=== PATIENT | female | born 1985 | race Caucasian/White ===

== ENCOUNTER → 2021-01-13 09:23 | Outpatient (CLI) | payer BC, SELFPAY ==
[2021-01-13 11:26] LABS: Hematocrit 33.2 % (36-46); Hemoglobin 11.1 g/dL (12.0-16.0)
[2021-01-13 11:49] LABS: GTT (PREG) 1 Hour PP 50gm Dose 150 mg/dL (76-139)
== END ==
PROVIDERS: Referring Provider Obstetrics & Gynecology; Visit Provider Obstetrics & Gynecology
DX: Z34.83 Encounter for supervision of other normal pregnancy, third trimester (principal)
CPT/HCPCS: 36415; 82950; 85014; 85018

== ENCOUNTER → 2021-01-15 16:58 | Outpatient (CLI) | payer BC, SELFPAY ==
[2021-01-18 15:25] LABS: Candida species Negative (Negative); Gardnerella vaginalis Negative (Negative); Trichomoas vaginalis Negative (Negative)
== END ==
PROVIDERS: Visit Provider Obstetrics & Gynecology
DX: O23.599 Infection of other part of genital tract in pregnancy, unspecified trimester (principal); B96.89 Other specified bacterial agents as the cause of diseases classified elsewhere; Z3A.31 31 weeks gestation of pregnancy
CPT/HCPCS: 87480; 87510; 87660

== ENCOUNTER → 2021-01-19 09:05 | Outpatient (CLI) | payer BC, SELFPAY ==
[2021-01-19 12:14] LABS: Glucose 1 Hour Gest 151 mg/dL (76-180)
[2021-01-19 12:36] LABS: Glucose Tol Interp,Gestational INTERPRETATION
[2021-01-19 13:29] LABS: Glucose 3 Hour Gest 109 mg/dL (76-140)
[2021-01-19 14:16] LABS: Glucose 2 Hour Gest 152 mg/dL (76-155)
[2021-01-19 16:40] LABS: Glucose Fasting Gestational 83 mg/dL (76-95)
== END ==
PROVIDERS: Referring Provider Obstetrics & Gynecology; Visit Provider Obstetrics & Gynecology
DX: O99.810 Abnormal glucose complicating pregnancy (principal)
CPT/HCPCS: 36415; 82951; 82952

== ENCOUNTER → 2021-02-16 12:34 | Outpatient (CLI) | payer BC, SELFPAY ==
[2021-02-17 07:58] LABS: Strep Grp B PCR POS for Grp B Strep
== END ==
PROVIDERS: Visit Provider Obstetrics & Gynecology
DX: Z34.83 Encounter for supervision of other normal pregnancy, third trimester (principal); Z3A.36 36 weeks gestation of pregnancy
CPT/HCPCS: 87653

== ENCOUNTER 2021-03-17 14:14 | Outpatient (CLI) | payer BC, SELFPAY ==
--- NOTE | 2021-03-17 14:54 | PM.OBTRLD ---
Visit Information Visit Information Date of evaluation: 03/17/21 Primary OB Provider: Eric Blackwell On-call OB Provider: Mirella Gudino Reason for Evaluation: Yes non-stress test non-stress test reason: other ( post dates) Vital Signs Vital Signs: blood pressure 125/72, pulse 76, temperature 97.4? COUNTS INCLUDE 234 BEDS AT THE [facility] Medical History (Updated 03/17/21 @ 15:00 by Mirella Gudino MD) Abnormal Pap smear of cervix (~2009) Acute vaginitis (~10/2020) ADHD Fracture of right clavicle (~1999) Migraines (~1999) Rosacea (~2010) (spontaneous vaginal delivery) (~02/15/16) UTI (urinary tract infection) Surgical History (Updated 01/08/21 @ 12:36 by Maddie Lopez, SHERICE) History of cranioplasty (~1985) S/P foot surgery (~2014) S/P LEEP (loop electrosurgical excision procedure) (~2010) [place] teeth extracted Family History (Updated 01/08/21 @ 12:44 by Maddie Lopez, SHERICE) Father Cancer Esophageal cancer Mother Cancer Melanoma Grandfather Cancer Leukemia Grandmother No problems noted. Grandfather Heart failure Grandmother No problems noted. 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 ) occupational status: unemployed (Not currently working. Needs to get her [place] On[employer]ep Exam & license first. ) current occupational exposures/hazards: No agustin/church: [employer] special agustin needs: No seatbelt use: always do you feel safe at home: Yes Smoking Status: Former smoker (Age 20-25, 3-5 cigs.) Tobacco: How many years used: 5 quit status: has quit before (Quit in 2016) second hand exposure: No alcohol intake: former (pre- : 2-4 times/month, no regular intake. None since .) substance use type: marijuana (Used via vapor pen prior to , has not used since : discussed with buckshot swage operator 07/31/2020 : nausea management discussed. Aware not to use THC with BF. ) during the past year weight has: remained stable well-balanced diet: daily or most days daily servings fruits/ve-4 caffeine: Yes (1 cup 16 oz a day. Advised to limit to 8 oz or do 1/2 decaf.) Type(s) of exercise: walking and swimming (Used to swim in [place], stopped with move.) frequency: daily duration: 15-30 minutes/day Evaluation Evaluation Baseline heart rate: 130 monitor accelerations: Present Monitor Decelerations: Absent Contraction Frequency (minutes): 9 Uterine Contraction Intensity: Mild Category of Tracing: Reactive Status: Category l Diagnosis, Plan/Disposition Final Diagnosis (1) 40 weeks gestation of : Status: Acute Plan/Disposition Plan: Reactive nonstress test. Keep routine OB appointment OB Disposition: home
== END 2021-03-17 15:00 | disposition home or self-care (01) ==
LOC: LABOR 14:40 → OB 03-23 12:03
PROVIDERS: Referring Provider Obstetrics & Gynecology; Visit Provider Obstetrics & Gynecology
DX: O48.0 Post-term pregnancy (principal); Z3A.41 41 weeks gestation of pregnancy
CPT/HCPCS: 59025; G0378; G0379

== ENCOUNTER 2021-03-21 21:28 | Inpatient (IN) | payer BC, SELFPAY ==
[2021-03-21] MEDS: PENICILLIN G POTASSIUM 5,000,000 UNIT in DEXTROSE 5% IN WATER 250 ML IV (23:59)
[2021-03-21] MEDS: LACTATED RINGERS 1,000 ML 100 ML IV (23:59)
[2021-03-22 00:19] VITALS: BP 125/82
[2021-03-22 00:23] LABS: Add Manual Diff / Slide Review NO; Basophils Absolute Auto 0 /uL (0-100); Basophils Percent Auto 0.2 % (0-2); Eosinophils Absolute Auto 100 /uL (0-450); Eosinophils Percent Auto 0.7 % (2-4); Hematocrit 37.2 % (36-46); Hemoglobin 12.3 g/dL (12.0-16.0); Lymphocytes Absolute Auto 1000 /uL (1100-4500); Lymphocytes Percent Auto 12.3 % (25-40); Mean Corpuscular HGB Conc 33.2 % (30-36); Mean Corpuscular Hemoglobin 30.4 PG (26-34); Mean Corpuscular Volume 91.5 fL (80-100); Monocytes Absolute Auto 600 /uL (0-900); Monocytes Percent Auto 7.2 % (3-14); Neutrophils Absolute Auto 6500 /uL (1500-7000); Neutrophils Percent Auto 79.6 % (50-75); Platelet Count 140 X10^3/uL (150-400); Red Blood Cell Count 4.06 X10^6/uL (4.0-5.2); Red Cell Distribution Width 14.5 % (11.6-14.8); White Blood Cell Count 8.2 X10^3/uL (4.5-11.0)
[2021-03-22 01:06] LABS: COVID19 - ADMIT (NP swab/PCR) Negative (Negative)
[2021-03-22] MEDS: FENT 2MCG/ML BUPIV 0.125% EPI 200 MCG/100 ML PLAST..BAG 8 MCG EPIDURAL (01:42)
[2021-03-22] MEDS: LACTATED RINGERS 1,000 ML 100 ML IV (02:11)
[2021-03-22] MEDS: PENICILLIN G POTASSIUM 3,000,000 UNIT/50 ML FROZ.PIGGY 100 UNIT IV (03:56)
[2021-03-22] MEDS: ACETAMINOPHEN 325 MG TABLET 650 MG PO ×3 (04:43→17:05)
--- NOTE | 2021-03-22 07:09 | PM.OBHP.1 ---
OB HPI Date/Time Date of admission: 03/21/21 Date Patient Seen: 03/22/21 Time Patient Seen: 06:30 History of Present Condition Chief complaint: : 2 Para: 1 Estimated Date of Delivery: 03/13/21 Estimated Gestational Age (weeks): 41+2 Narrative: Megan Nichole is a 35 year old admitted now at 41+1 weeks EGA in labor. + GBS. History of Present care: good care Dating criteria: LMP confirmed by 1st trimester US Ultrasounds: normal mid trimester US Obstetrical complications: other (GBS +) Preadmission Labs Blood type: O (+) positive -: Antibody screen: negative, GBS status: positive, HBsAG: negative, HIV: negative and RPR/VDLR: negative -: Chlamydia screen: not detected and Gonorrhea screen: not detected -: Rubella: immune and Varicella: immune HCT: 37.2 HCAB: negative PAP: Normal Cell-free DNA: Normal 1 hr GTT: 150 Prior (ies) History: x 1 Evaluation Evaluation Baseline heart rate: 150 Variability: Moderate (11-25) monitor accelerations: Present Monitor Decelerations: Absent Contraction Frequency (minutes): 4 Uterine Contraction Intensity: Moderate Category of Tracing: Reactive Status: Category l Cervical dilation (cm): 7 Cervical effacement (%): 100 station: -2 [facility] Medical History Abnormal Pap smear of cervix (~2009) Acute vaginitis (~10/2020) ADHD Fracture of right clavicle (~1999) Migraines (~1999) Rosacea (~2010) (spontaneous vaginal delivery) (~02/15/16) UTI (urinary tract infection) Surgical History History of cranioplasty (~1985) S/P foot surgery (~2014) S/P LEEP (loop electrosurgical excision procedure) (~2010) [place] teeth extracted Family History Father Cancer Esophageal cancer Mother Cancer Melanoma Grandfather Cancer Leukemia Grandmother No problems noted. Grandfather Heart failure Grandmother No problems noted. 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 ) occupational status: unemployed (Not currently working. Needs to get her [place] Bar Exam & license first. ) current occupational exposures/hazards: No agustin/presybeterian: [employer] special agustin needs: No seatbelt use: always do you feel safe at home: Yes Smoking Status: Never smoker Tobacco: How many years used: 5 quit status: has quit before (Quit in 2016) second hand exposure: No alcohol intake: former (pre- : 2-4 times/month, no regular intake. None since .) substance use type: marijuana (Used via vapor pen prior to , has not used since : discussed with parts casting machine operator 07/31/2020 : nausea management discussed. Aware not to use THC with BF. ) during the past year weight has: remained stable well-balanced diet: daily or most days daily servings fruits/ve-4 caffeine: Yes (1 cup 16 oz a day. Advised to limit to 8 oz or do 1/2 decaf.) Type(s) of exercise: walking and swimming (Used to swim in [place], stopped with move.) frequency: daily duration: 15-30 minutes/day Meds Home Medications and Allergies Home Medications Medication Instructions Recorded Confirmed Type azelaic acid 15 % topical foam 1 applic TOPICAL QAM AND QPM 01/08/21 03/22/21 History (Finacea) diphenhydramine HCl 50 mg capsule 50 mg PO BEDTIME 01/08/21 03/21/21 History ivermectin 1 % topical cream 1 applic TOPICAL DAILY 01/08/21 03/22/21 History (Soolantra) melatonin 5 mg tablet 5 mg PO BEDTIME PRN 01/08/21 03/21/21 History omeprazole 40 mg capsule,delayed 40 mg PO BID 01/08/21 03/21/21 History release prenat.vits,cielo,qno-vhaz-alpui 1 tab PO DAILY 01/08/21 03/21/21 History Allergies Allergy/AdvReac Type Severity Reaction Status Date / Time cefaclor [From [facility]] AdvReac Mild Unsure: Verified 03/21/21 21:59 rash as a child. Sulfa (Sulfonamide AdvReac Mild Unsure of Verified 03/21/21 21:59 Antibiotics) reaction : Rash? exposed as a baby/child Review of Systems Review of Systems Narrative: Problem-specific ROS positives included in HPI. Exam Vital Signs (past 8 hours): - 03/22/21 00:19 Blood Pressure 125/82 Const General: cooperative and in distress (Due to contractions) Nutritional Appearance: average body habitus Orientation: alert, oriented x3 and confused HENMT Head: normal to inspection Ears: hearing grossly normal bilaterally Nose: external nose normal Eyes General: appearance normal, both eyes and all related structures Conjunctivae: conjunctivae normal Sclera: sclerae normal EOM: EOM intact bilaterally Neck Neck: normal visual inspection Thyroid: thyroid normal Resp Effort & Inspection: normal respiratory effort and able to speak in complete sentences Auscultation: clear to auscultation bilaterally Cardio Rhythm: regular rhythm Heart Sounds: S1 normal, S2 normal and no murmurs GI Inspection: normal to inspection Palpation: soft and no hepatosplenomegaly Uterus Location (Fundal Height): 38 Presentation: vertex Estimated Weight (lbs): 9 Amniotic Fluid: clear Extrem General: normal to inspection and No calf tenderness Psych Appearance: grossly normal Mental Status: mental status grossly normal Speech and Movement: speech and movement normal Mood: congruent mood Affect: normal affect Attitude: cooperative Thought Process: normal Thought Content: normal Judgment: judgment good Objective Labs Result Diagrams: 03/21/21 23:40 Labs: Laboratory Results - last 24 hr 03/21/21 03/21/21 03/21/21 23:40 23:40 23:40 WBC 8.2 RBC 4.06 Hgb 12.3 Hct 37.2 MCV 91.5 MCH 30.4 MCHC 33.2 RDW 14.5 Plt Count 140 L Neut % (Auto) 79.6 H Lymph % (Auto) 12.3 L [place] % (Auto) 7.2 Eos % (Auto) 0.7 L Baso % (Auto) 0.2 Neut # (Auto) 6500 Lymph # (Auto) 1000 L [place] # (Auto) 600 Eos # (Auto) 100 Baso # (Auto) 0 SARS-CoV-2 (PCR) Negative Blood Type O Positive Antibody Screen Negative Assessment and Plan Assessment and Plan Assessment and Plan narrative: ASSESSMENT Intrauterine gestation, zarate, vertex Active labor GBS positive PLAN IV AB prophylaxis Anticipate Time Spent with Patient Total time spent with greater than 50% in coordination of care (as documented) at patient's floor/unit and/or counseling patient:: less than 15 minutes
--- NOTE | 2021-03-22 07:31 | PM.OBPRVD ---
Events: Other (GBS positive) Labor & Delivery Delivery date: 03/22/21 Intrapartal Events: None Cervical ripening method: none Induction method: none Delivery monitor: external FHT and external uterine Route of delivery: Episiotomy description: None L&D Laceration Description: Perineal - 2nd Degree Delivery repair: chromic Estimated blood loss (mL): 250 Anesthesia Type: Epidural Complications: None Narrative: With satisfactory MARIO anesthesia, the patient pushed well and spontaneously delivered a viable male , Apgars 8/9 over an intact perineum. Shoulders delivered without difficulty and a tight CAN x 1 was reduced following delivery of the . Skin to skin contact initiated immediately and cord clamping delayed for greater than 60 seconds. Cord blood obtained for routine studies. The placenta was delivered spontaneously with gentle cord traction and found to be intact with 3 vessels. A second degree perineal laceration was repaired with 00 CCGS in the usual manner and there were no complications. EBL 250. Mother and infant doing well. Baby 1: gender: Male Presentation: vertex Position: Left Occiput Anterior Placenta delivery description: Spontaneous Cord Vessel Description: 3 Vessels score (1 min): 8 score (5 min): 9 weight: 9 lb 6.197 oz Plan for aftercare: Routine care
[2021-03-22] MEDS: IBUPROFEN 600 MG TABLET PO ×3 (07:51→20:25)
[2021-03-22] MEDS: PRENATAL VIT,CALC/IRON/FOLIC 1 TABLET 1 TAB PO (08:40)
[2021-03-22] MEDS: OXYCODONE IR 5 MG TABLET PO ×4 (08:40→20:26)
[2021-03-22] MEDS: DOCUSATE 100 MG CAPSULE PO ×2 (08:40→20:33)
--- NOTE | 2021-03-22 09:57 | PM.OBPNLAB ---
Date/Time Date Patient Seen: 03/22/21 Time Patient Seen: 09:57 Pain Control Pain control: tolerating well and epidural Pelvic Exam Dilation (cm): 10 Effacement (%): 100 station: +1 Amniotic membrane status: Ruptured Comments: RAFI 739, 03/22/2021 Contractions Contractions on admission: irregular Monitor mode: External Pitocin rate (mU/min): 3 Contraction frequency (min): 3 Contraction duration (min): 1 Contraction pattern: Regular Contraction phase: Resting Contraction intensity: Moderate Status status: Category l Heart Rate Baseline: 125 Monitor Accelerations: Present Monitor Decelerations: Absent Monitor Variability: Moderate Assessment and Plan Assessment: active labor and other (Augmentation ongoing) Plan: continuous present management Comments: Anticipate
[2021-03-22] MEDS: DERMOPLAST SPRAY 20% 60 ML 1 SPRAY TOP ×2 (11:06→20:34)
[2021-03-22 17:04] VITALS: TEMP 36.3
[2021-03-22 17:05] VITALS: TEMP 36.3
[2021-03-22] MEDS: diphenhydrAMINE 25 MG TABLET 50 MG PO (20:33)
[2021-03-22] MEDS: LANOLIN OINT 7 GM 1 APPLIC TOP (20:33)
[2021-03-22] MEDS: PANTOPRAZOLE DR 40 MG TABLET PO (20:34)
[2021-03-23] MEDS: ACETAMINOPHEN 325 MG TABLET 650 MG PO ×2 (00:29→08:34)
[2021-03-23] MEDS: OXYCODONE IR 5 MG TABLET PO (00:30)
[2021-03-23] MEDS: IBUPROFEN 600 MG TABLET PO ×2 (03:19→12:15)
[2021-03-23] MEDS: DOCUSATE 100 MG CAPSULE PO (08:32)
[2021-03-23] MEDS: PANTOPRAZOLE DR 40 MG TABLET PO (08:33)
[2021-03-23 08:34] VITALS: TEMP 36.4
[2021-03-23] MEDS: PRENATAL VIT,CALC/IRON/FOLIC 1 TABLET 1 TAB PO (08:34)
[2021-03-23 08:40] LABS: Add Manual Diff / Slide Review NO; Basophils Absolute Auto 0 /uL (0-100); Basophils Percent Auto 0.5 % (0-2); Eosinophils Absolute Auto 100 /uL (0-450); Eosinophils Percent Auto 1.1 % (2-4); Hematocrit 35.8 % (36-46); Hemoglobin 11.9 g/dL (12.0-16.0); Lymphocytes Absolute Auto 1500 /uL (1100-4500); Lymphocytes Percent Auto 20.4 % (25-40); Mean Corpuscular HGB Conc 33.2 % (30-36); Mean Corpuscular Hemoglobin 30.3 PG (26-34); Mean Corpuscular Volume 91.1 fL (80-100); Monocytes Absolute Auto 400 /uL (0-900); Monocytes Percent Auto 5.7 % (3-14); Neutrophils Absolute Auto 5400 /uL (1500-7000); Neutrophils Percent Auto 72.3 % (50-75); Platelet Count 114 X10^3/uL (150-400); Red Blood Cell Count 3.93 X10^6/uL (4.0-5.2); Red Cell Distribution Width 14.6 % (11.6-14.8); White Blood Cell Count 7.4 X10^3/uL (4.5-11.0)
[2021-03-23 12:15] VITALS: TEMP 36.6
[2021-03-23 15:39] VITALS: BP 131/76; PULSE 94; RESP 16; TEMP 36.6
--- NOTE | 2021-03-23 16:22 | P.DS_ITS ---
Discharge Providers Provider Date of admission: 03/21/21 21:28 Discharge Date: 03/23/21 Consults: 03/23/21 07:00 Consult to Radioactivity Technician Routine Comment: Discharge provider: Eric Blackwell MD Summary Hospital Course Date Patient Seen: 03/23/21 Time Patient Seen: 13:30 Diagnoses: Intrauterine gestation, [place], term, delivered Hospital Course: Megan was admitted on the evening of 03/21/2021 in spontaneous labor. She progressed well through the active phase of labor and delivered spontaneously early on the morning of 03/22/2021. She sustained a second-degree perineal laceration at the time which was repaired in the usual fashion with chromic suture. Following delivery the patient has done extremely well with prompt return of bowel and bladder function, she is ambulating independently, tolerating regular diet, and her pain is well controlled with ibuprofen and oxycodone as needed. Her 1st morning hemoglobin and hematocrit are consistent with observed delivery losses. She will be discharged at this time and afebrile normotensive condition home after being counseled regarding precautionary symptoms, limitations of activity, medications, plans for follow-u p. Medications at the time of discharge will include oxycodone 5 mg, 10. With no refills, ibuprofen 600 mg p.o. q.6 hours as needed pain dispense 60 with 3 refills, Radha (Micronor) OCs to be started and taken daily, and Colace 100 mg p.o. b.i.d. as needed constipation dispense 60 with 1 refill. Patient will be followed up in the office in 2 weeks. Peripartum Data Delivery Method: Natural Vaginal Laceration Description: Perineal - 2nd Degree Episiotomy description: None complications: none [place] 1: Gender: Male Disposition of : home Discharge Diagnosis (1) Obstetric vaginal laceration, delivered, current hospitalization: Status: Acute (2) GBS carrier: Status: Acute Status at Discharge Cognitive/behavioral status at discharge: oriented and at baseline, oriented Functional status at discharge: independent ambulation Overall status at discharge: patient is progressing back to baseline Time Spent with Patient Time attestation: Total time spent providing and/or coordinating discharge services: Time spent: Less than 30 minutes Objective Labs Result Diagrams: 03/23/21 08:31 Labs: Laboratory Results - last 24 hr 03/23/21 08:31 WBC 7.4 RBC 3.93 L Hgb 11.9 L Hct 35.8 L MCV 91.1 MCH 30.3 MCHC 33.2 RDW 14.6 Plt Count 114 L Neut % (Auto) 72.3 Lymph % (Auto) 20.4 L [place] % (Auto) 5.7 Eos % (Auto) 1.1 L Baso % (Auto) 0.5 Neut # (Auto) 5400 Lymph # (Auto) 1500 [place] # (Auto) 400 Eos # (Auto) 100 Baso # (Auto) 0 Exam Vital Signs (past 8 hours): - 03/23/21 08:34 03/23/21 12:15 03/23/21 15:39 Temperature 97.6 F 97.8 F 97.8 F Pulse Rate 94 H Respiratory Rate 16 Blood Pressure 131/76 Const General: cooperative and comfortable Nutritional Appearance: average body habitus Orientation: alert and oriented x3 HENMT Head: normal to inspection Eyes General: appearance normal, both eyes and all related structures Neck Neck: normal visual inspection GI Inspection: normal to inspection Palpation: soft and no hepatosplenomegaly External Female Exam: other ( Laceration repair intact with minimal swelling, ecchymosis.) Extrem General: No calf tenderness Psych Appearance: grossly normal Mental Status: mental status grossly normal Speech and Movement: speech and movement normal Mood: congruent mood Affect: normal affect Attitude: cooperative Thought Process: normal Thought Content: normal Judgment: judgment good Discharge Plan Discharge Plan Patient Disposition: Home Provider Discharge Comment: See written instructions. Your next appointment will be in 6 weeks and I look forward to seeing you then. In the meanwhile please let me know if you have any concerns or issues which need to be addressed. Discharge orders & Medications Prescriptions: New docusate sodium 100 mg Capsule 100 mg PO BID Qty: 60 RF: 3 ibuprofen 600 mg Tablet 600 mg PO Q6HR PRN (Reason: Pain, Mild (1-3)) Qty: 60 RF: 3 oxycodone 5 mg Tablet 5 mg PO Q4HR PRN (Reason: Pain, Moderate (4-6)) Qty: 12 RF: 0 norethindrone (contraceptive) [Anette] 0.35 mg tablet 0.35 mg PO DAILY Qty: 28 RF: 12 Continued prenat.vits,cielo,[id number] Tablet 1 tab PO DAILY RF: 0 omeprazole 40 mg capsule,delayed release(DR/EC) 40 mg PO BID RF: 0 diphenhydramine HCl 50 mg capsule 50 mg PO BEDTIME RF: 0 melatonin 5 mg tablet 5 mg PO BEDTIME PRN (Reason: Sleep) RF: 0 Finacea 15 % foam 1 applic topical QAM AND QPM RF: 0 ivermectin [Soolantra] 1 % cream 1 applic topical DAILY RF: 0 Follow up/Referrals: Eric Blackwell MD [Physician] - (Post appt with Dr. lee on 05/04/2021 @ 0930) Diet/Activity/Treatments Diet: Diet as Tolerated Activity: Pelvic rest Skin/Wound/Dressing Care Report to your healthcare provider any signs of infection, such as:: chills, fever, night sweats, increased pain, unusual drainage and unusual redness Visit Report/Discharge Packet Stand Alone Forms: Discharge: Care
== END 2021-03-23 16:05 | disposition home or self-care (01) | DRG 807 ==
PROVIDERS: Obstetrics & Gynecology; Admitting Provider Family Medicine; Referring Provider Family Medicine; Visit Provider Family Medicine
DX: O48.0 Post-term pregnancy (principal); Z37.0 Single live birth; O99.824 Streptococcus B carrier state complicating childbirth; Z3A.41 41 weeks gestation of pregnancy; O70.1 Second degree perineal laceration during delivery
CPT/HCPCS: 01967; 36415; 59050; 59410; 85025; 86850; 86900; 86901; 87635; C9803; G0379; J2540

== ENCOUNTER 2021-08-24 20:29 | Emergency (ER) | payer BC, SELFPAY ==
[2021-08-24 20:39] VITALS: BP 134/76; PULSE 94; RESP 18; TEMP 36.6; O2SAT 98; BMI 20.1
[2021-08-24 21:19] LABS: COVID19 -Nasal RAPID Negative (Negative)
== END 2021-08-25 04:00 | disposition left against medical advice (07) ==
PROVIDERS: Emergency Provider Emergency Medicine
DX: Z20.822 Contact with and (suspected) exposure to COVID-19 (principal)
CPT/HCPCS: 87635; 99281; C9803